=== PATIENT | male | born 1950 | race Caucasian/White ===

== ENCOUNTER 2022-02-08 15:18 | Outpatient (CLI) | payer MEDICARE, OTHER, SELFPAY ==
--- NOTE | 2022-02-08 09:40 | LES_PTH ---
PATIENT: YAMILKA SORIANO LOC: [facility] U#:[id number] AGE/SX: 71/M ROOM: RE02/08/[address]: Dr. Nas Fernandez MD : [id number] BED: DIS: 02/08/2022 SPEC #: [id number] RECD: 02/08/22 15:10 STATUS: STEVEN JARVIS #: [id number] OPAL: 02/08/22 09:[address]: Nas Fernandez DEPT: SURGICAL PATHOLOGY RECD BY: Marjan Oliver Tissues: Skin of external ear, NOS Procedures: Special Stain Group II Surgery Specimen Level IV Alcian Blue/PAS (control) HEADER OPERATION: Right ear biopsy PRE-OP DIAGNOSIS: Right ear lesion TISSUE SUBMITTED: Right ear lesion MICROSCOPIC DIAGNOSIS Lesion of right ear, biopsy: Detached fragments of basal cell carcinoma. AM:dawn 02/10/2022 MICROSCOPIC DESCRIPTION Slides are reviewed. GROSS DESCRIPTION Received in fixative is one container labeled with the patient's name and designated right ear lesion. The specimen consists of multiple minute fragments of light pope tissue measuring in aggregate 0.3 x 0.2 x <0.1 cm. The specimen is submitted in its entirety in one cassette. / AM:dawn 02/09/2022 TC:0 CPT: 58880
== END 2022-02-08 23:59 | disposition home or self-care (01) ==
LOC: LABSPEC 15:25
PROVIDERS: Visit Provider Otolaryngology
DX: H61.891 Other specified disorders of right external ear (principal)
CPT/HCPCS: 88305; 88313